=== PATIENT | male | born 1945 | race Caucasian/White ===

== ENCOUNTER 2022-06-01 07:27 | Day surgery (SDC) | payer OTHER ==
--- NOTE | 2022-05-19 10:35 | RAD REPORT ---
EXAM DESCRIPTION: Alon Varghese (2 Views)05/19/2022 10:30 am CLINICAL HISTORY: Preop/hypertension COMPARISON: 2019 FINDINGS: The lungs appear clear of acute infiltrate. The heart is normal size IMPRESSION: No acute abnormalities displayed
[2022-05-19 10:39] LABS: Absolute Lymphocytes (CBC) 0.7 K/uL (0.7-4.9); Hematocrit 38.6 % (39.6-49.0); Lymphocytes % 9.9 % (15.3-44.8); MCV 87.6 fL (80-100); MPV 8.8 fL (7.6-11.3); RBC Red Blood Cell Count 4.41 M/uL (4.33-5.43)
[2022-05-19 10:40] LABS: Protime INR 2.05
[2022-05-19 10:51] LABS: Potassium 4.1 mmol/L (3.5-5.1)
--- NOTE | 2022-05-19 16:23 | EKG ---
Test Date: 2022-05-19 Test Time: 10:11:08 Linoleum Installer: VIANCA MEASUREMENT RESULTS: Intervals: Rate: 85 [place]: QRSD: 94 QT: 346 QTc: 411 [place]: P: [place]: QRS: 22 T: 30 INTERPRETIVE STATEMENTS: Atrial fibrillation Incomplete right bundle branch block Abnormal ECG Compared to ECG 07/30/2013 16:39:24 Incomplete right bundle-branch block now present Sinus rhythm no longer present Left ventricular hypertrophy no longer present Electronically Signed On 05-19-22 16:22:48 WASHATERIA ATTENDANT by Garrison Ackerman
[~2022-06-01 07:27] MED LIST: Meropenem 1,000 MG in NA CHLORIDE 0.9% 100 ML IV SCH
[2022-06-01] MEDS ORDERED: Ringers Lactate 1,000 ML IV ONE (07:55)
[2022-06-01 07:59] LABS: Protime INR 1.1
[2022-06-01] MEDS ORDERED: FENTANYL CITR 100 MCG/2 ML ONE ×2 (09:40→10:04)
[2022-06-01] MEDS ORDERED: LIDOCAINE 1% MPF 5 ML VIAL ONE (09:40)
[2022-06-01] MEDS ORDERED: propofoL 200 MG/20 ML VIAL IV ONE (09:40)
[2022-06-01] MEDS ORDERED: PHENAZOPYRIDINE 100MG TAB PO ONE ×2 (09:57→11:31)
[2022-06-01] MEDS ORDERED: HYDROCODONE/APAP 5/325 MG TAB PO PRN (09:57)
[2022-06-01] MEDS ORDERED: KETOROLAC 30 MG/ML INJ ONE (10:08)
[2022-06-01] MEDS ORDERED: ONDANSETRON 4 MG/2 ML VIAL ONE (10:08)
[2022-06-01] MEDS ORDERED: NS 0.9% VIAL 10 ML ONE (10:12)
[2022-06-01] MEDS ORDERED: Phenylephrine HCl 10 MG/ML 1 ML VIAL ONE (10:12)
[2022-06-01 11:39] LABS: Potassium 5.6 mmol/L (3.5-5.1)
[2022-06-01] MEDS ORDERED: FUROSEMIDE 40 MG/4 ML VIAL ONE (11:48)
[2022-06-01] MEDS ORDERED: NA CHLORIDE 0.9% 1,000 ML ONE (11:48)
[2022-06-01] MEDS ORDERED: NA CHLORIDE 0.9% 1,000 ML IV ONE (11:54)
[2022-06-01] MEDS ORDERED: FUROSEMIDE 40 MG/4 ML VIAL IV ONE (11:54)
[2022-06-01] MEDS ORDERED: HYDROCODONE/APAP 5/325 MG TAB ONE (13:17)
[2022-06-01 14:29] VITALS: TEMP 97.9
[2022-06-01 14:44] LABS: Potassium 5.2 mmol/L (3.5-5.1)
[2022-06-01 15:40] VITALS: BP 122/69; O2SAT 97
[2022-06-01] MEDS ORDERED: Meropenem 1,000 MG in NA CHLORIDE 0.9% 100 ML IV SCH (16:00)
--- NOTE | 2022-06-02 09:51 | OP ---
Surgeon: YANELI HARRIS Preoperative Diagnoses: Benign prostatic hypertrophy with lower urinary tract obstruction and acute urinary retention. Postoperative Diagnoses: 1.Benign prostatic hypertrophy with lower urinary tract obstruction and acute urinary retention. 2.Foreign body in bladder. Principal Procedure: 1.Prostatic urethral lift with 7 implants placed, 3 on the right and 4 on the left. 2.Removal of foreign body from within the bladder. Indication For Procedure: Mr. Knox is a 77-year-old gentleman, who [facility] with acute urinary retention. He underwent urodynamic evaluation following cystoscopy that reveale d weak detrusor contractility. As a result, the degree of obstruction was equivocal. I counseled th e patient on the findings and explained that any procedure to manage his obstruction may potentially be unsuccessful due to the failure of adequate contractility of his bladder. However, the only optio n for trying to remove the catheter would be to undergo a prostatic urethral procedure. After counse ling on the different options to include a bipolar TURP versus the UroLift, he elected to proceed wit h UroLift recognizing the potential for subsequent transurethral resection, if necessary. This would also decrease the risk of incontinence associated with the findings of some detrusor instability not ed on urodynamics. Procedure In Detail: The patient was consented in the preoperative holding area before being transfe rred to the operative suite where general anesthesia was induced. He was given meropenem 1 g IV anti microbial therapy starting 1 to 2 hours prior to the procedure. He had previously been administered gentamicin 400 mg IM every week day since last Tuesday in preparation for surgery today. He was also taking oral Bactrim antimicrobial therapy for urine culture results obtained preoperatively suggesti ve of Pseudomonas and MRSA in his urine. As a result, the catheter was removed once he was placed un michael general anesthesia, and then he was placed in the lithotomy position, padded and secured to the t able appropriately. His genitalia were prepped with Hibiclens mixed with Betadine, and he was draped in standard fashion. The case was begun using a 20-Latvian UroLift sheath with a visual obturator to traverse the urethra and into the bladder with ease. The prostatic urethra was surveyed on the way in, and there was the noted lateral lobar hypertrophy with an elevated median bar without significant intravesical projection. The bladder was decompressed of fluid and urine, and there was noted to be a hair/foreign body within the bladder. After irrigating and removing the hair from within his bladder and ensuring no additional debris pres ent, I then substituted the visual obturator for the first UroLift delivery device and selected the p osition within the left bladder neck region of the prostate approximately 1.5 cm from the bladder nec k. Starting in anterior lateral position in the prostate at about the 10 to 11 o'clock position, the trigger was pulled deploying the needle containing the capsular tab through the prostate. Further c ompression was then achieved seeding the needle to the outer surface of the prostate before the secon d pull of the trigger seeded the capsular tab outside the prostate. The third pull then tensioned th e suture, before I angled the device back toward the midline and advanced 2-3 mm until the monofilame nt was centered in the delivery [place], and then I pulled the trigger the 4th time cutting the suture an d applying the implant tailoring it such that it invaginated within the prostatic urethral tissue genaro ernie on that side approximately 0.5 to 0.75 cm from the bladder neck. I then advanced the UroLift del [place] device back into the bladder before exchanging it for a new UroLift delivery device and placing a similar implant at this time on the right side, 1.5 to 2 cm distal to the bladder neck. Once this was complete, this did achieve a nice opening of the bladder neck, but there was still residual late ral lobar tissue extending to the apex; so, I utilized a 3rd implant at the verumontanum on the left side before placing a 4th implant at the verumontanum on the right side. I then substituted the UroL ift delivery device for visual obturator and surveyed the channel, and there was noted to be some mid gland lateral lobar intrusion obscuring the prostatic urethral lumen while the bladder neck and the apex were nice and open. As a result, I placed a 5th implant in the mid gland region of the prostate on the right side and a 6th implant contralateral in the midline region on the left side. Again, baeza rvey of the channel created did reveal a nice anterior channel, but it was somewhat circuitous ema g off toward the bladder neck to the patient's right. This was because of the residual degree of lat eral lobar tissue that was inferior to the bladder neck implant and also inferior to the mid gland im plant that had previously been placed more anteriorly; so a 7th implant was then placed in that lower component of the tissue invaginating into the anterior channel causing it to be more circuitous. Th is then created a nice and straight continuous anterior channel visible from the verumontanum into th e bladder neck following a total of 7 implants placed. Four implants were placed on the patient's le ft side and three implants were placed on the right side. I then left his bladder full and removed t he scope along with the UroLift device and then replaced into his bladder, a 20-Latvian urethral [place] catheter with ease. 30 cc of sterile water was placed in the balloon, and the catheter was then all owed to decompress. I then irrigated the catheter to ensure absence of any clot material within and the clarity of the urine, and when the urine was essentially clear, I then connected the catheter to a leg bag and took the patient out of the lithotomy position. He was then awakened from general anes thesia, transferred to a stretcher, and then transferred to the recovery room in good condition. Complications: None. Discharge Disposition: He should go home and continue taking the Bactrim antimicrobial provided preo peratively starting after 5 p.m. today. We will provide him with an additional dose of meropenem abdullahi or to discharge about 6 hours after his dose administered this morning. Subsequently, the patient wi ll remove the catheter himself at home tomorrow and conduct a voiding trial. We will then have him c ome by the office in the early afternoon to ensure he is emptying adequately. GHISLAINE/LOUIEL Voice ID: [id number] Report ID: [id number]
== END 2022-06-01 16:50 | disposition home or self-care (01) ==
LOC: OR 07:27
PROVIDERS: ATTEND Urology
PROC: 0T7D8DZ Dilation of Urethra with Intraluminal Device, Via Natural or Artificial Opening Endoscopic (ICD-10-PCS; principal; 2022-06-01 09:30)
DX: N40.1 Benign prostatic hyperplasia with lower urinary tract symptoms (principal); R33.9 Retention of urine, unspecified; T19.1XXA Foreign body in bladder, initial encounter; X58.XXXA Exposure to other specified factors, initial encounter; N39.0 Urinary tract infection, site not specified; B96.5 Pseudomonas (aeruginosa) (mallei) (pseudomallei) as the cause of diseases classified elsewhere; B95.62 Methicillin resistant Staphylococcus aureus infection as the cause of diseases classified elsewhere
CPT/HCPCS: 93005; 87088; 85025; 87086; 80048 ×3; 36415 ×2; 85610 ×2; 87077 ×2; 87186 ×2; 71046; 52441; 52442 ×6; J2704; J2001; J2370; J1940; J3010 ×2; J2185 ×2; A4216; J7120; J7030; J2405

== ENCOUNTER 2023-10-24 08:15 | Day surgery (SDC) | payer OTHER ==
[2023-10-24 08:22] LABS: Absolute Basophils 0.1 K/uL (0-0.5); Absolute Eosinophils 0.2 K/uL (0-0.5); Absolute Lymphocytes (CBC) 0.8 K/uL (0.7-4.9); Absolute Monocytes 0.7 K/uL (0.1-1.3); Absolute Neutrophil 6.6 K/uL (1.8-8.0); Basophils % 0.8 % (0-1.3); Eosinophils % 2.8 % (0-4.4); Hematocrit 40.2 % (39.6-49.0); Hemoglobin 13.3 g/dL (13.6-17.9); Lymphocytes % 9.3 % (15.3-44.8); MCH 29.3 pg (27.0-35.0); MCHC 33.1 g/dL (32.0-36.0); MCV 88.7 fL (80-100); MPV 8.8 fL (7.6-11.3); Monocytes % 8.4 % (3.3-12.3); Neutrophils % 78.7 % (41.7-73.7); Platelets 274 thou/uL (152-406); RBC Red Blood Cell Count 4.54 M/uL (4.33-5.43); Red Cell Distribution Width 13.9 % (12.1-15.2)
[2023-10-24 08:25] LABS: PT Prothrombin Time 13.7 SECONDS (9.5-12.5); PTT, Activated Partial Thromb 45.5 SECONDS (24.3-36.9); Protime INR 1.25
[2023-10-24] MEDS: Ringers Lactate 1,000 ML IV ONE (08:45)
[2023-10-24 08:51] LABS: Anion Gap 5.6 mEq/L (5.0-15.0); Potassium 4.6 mEq/L (3.5-5.1)
[2023-10-24] MEDS: CEFAZOLIN SODIUM 1 GM/VIAL ONE (10:16)
[2023-10-24] MEDS ORDERED: propofoL 200 MG/20 ML VIAL IV ONE (10:47)
[2023-10-24] MEDS ORDERED: FENTANYL CITR 100 MCG/2 ML ONE (10:47)
[2023-10-24] MEDS ORDERED: LIDOCAINE 1% MPF 5 ML VIAL ONE (10:47)
[2023-10-24] MEDS ORDERED: ONDANSETRON 4 MG/2 ML VIAL ONE (11:16)
[2023-10-24] MEDS ORDERED: dexAMETHasone 4 MG/ML VIAL ONE (11:16)
--- NOTE | 2023-10-24 11:39 | P.BOP ---
Preoperative diagnosis: right posterior infected subQ mass with abscess Primary procedure: Excisional biopsy right posterior infected subQ mass [id number] Secondary procedure: with abscess drainage Estimated blood loss: <10cc Specimen: mass, culture Findings: mass with abscess Anesthesia: General Complications: None Drain(s): Other (iodoform) Transferred to: Recovery Room Condition: Good
[2023-10-24] MEDS: CODEINE 30MG/APAP 300MG TAB ONE (12:49)
[2023-10-24 13:07] VITALS: BP 127/80; TEMP 98; O2SAT 96
--- NOTE | 2023-10-24 14:37 | EKG ---
Test Date: 2023-10-24 Test Time: 08:05:09 Assistant Track Coach: AKOSUA MEASUREMENT RESULTS: Intervals: Rate: 81 [place]: QRSD: 104 QT: 368 QTc: 427 [place]: P: [place]: QRS: 52 T: 53 INTERPRETIVE STATEMENTS: Atrial fibrillation Incomplete right bundle branch block Abnormal ECG Compared to ECG 05/19/2022 10:11:08 No significant changes Electronically Signed On 10-24-23 14:36:02 CDT by Lennox Ramirze
--- NOTE | 2023-10-31 22:47 | DS ---
Date of Discharge: 10/24/2023 Diagnosis: Right posterior infected subcutaneous mass with abscess. Procedure: Excisional biopsy of right posterior subcutaneous infected mass 7 x 7 x 3 cm. Condition: Stable. Disposition: Home. Activity: As tolerated. No heavy lifting. Followup: Follow up in my office in 1 week. Call for appointment at [phone]. He also has the opti ons to [facility] in the next 48 hours if possible. The family was explai shaun. LYNDA/LIVIA Voice ID: [id number] Report ID: [id number]
--- NOTE | 2023-10-31 23:05 | OP ---
Date of Procedure: 10/24/2023 Surgeon: Jann Mccormack MD Preoperative Diagnosis: Right posterior infected subcutaneous mass with abscess. Postoperative Diagnosis: Right posterior infected subcutaneous mass with abscess. Procedure: Excisional biopsy of right posterior infected subcutaneous mass 7 x 7 x 3 cm with abscess drainage. Estimated Blood Loss: Less than 10 mL. Specimen: Mass and culture. Finding: Mass with abscess. Anesthesia: General plus local. Packing: Iodoform. Indications: This is a case of a male, who comes to us with infected back mass draining purulent dis charge, cellulitis present, fluctuance, tenderness consistent with an ulcer, underlying abscess. The benefits, alternatives, and risks of excisional biopsy of infected mass and also drainage of an absc ess fully explained to him, which include, but not limited to infection, bleeding, damage to adjacent structures, anesthesia complication, recurrence, DE, and . He also understands this may not re lieve any symptoms. He might need more than one surgical intervention. He understood and signed a c onsent. He also understands he will be doing dressing changes and he has to be compliant with that a nd the antibiotics given. Procedure In Detail: The area of concern was marked by me and the patient in the holding room. The patient was brought to the operating room, placed in supine position. Anesthesia was done without co mplication. The patient was placed in lateral decubitus position with proper protection. The neck a jarrett was prepped and draped in a sterile fashion already. A local anesthesia was applied followed by sharp incision on the skin including some of the skin with it. That was done all the way down to sub cutaneous tissue. The mass was excised. We noticed an abscess with pus underneath and that was cult ured. Hemostasis was obtained. This goes all the way down to muscle, does not penetrate the muscle. We obtained hemostasis with local anesthetic and they packed the area with iodoform. There were mu ltiple loculations that were explored open on each side of the area. The patient tolerated the proce dure well. The area was covered with sterile dressings. The patient was sent to Recovery in stable condition. LYNDA/LIVIA Voice ID: [id number] Report ID: [id number]
== END 2023-10-24 13:15 | disposition home or self-care (01) ==
LOC: OR 08:15
PROVIDERS: ATTEND Surgery
PROC: 0JB40ZZ Excision of Right Neck Subcutaneous Tissue and Fascia, Open Approach (ICD-10-PCS; principal; 2023-10-24 12:15)
DX: L02.11 Cutaneous abscess of neck (principal); L03.221 Cellulitis of neck; L08.9 Local infection of the skin and subcutaneous tissue, unspecified; I48.91 Unspecified atrial fibrillation; I51.9 Heart disease, unspecified; I10 Essential (primary) hypertension; J44.9 Chronic obstructive pulmonary disease, unspecified
CPT/HCPCS: 11426; 93005; 87070; 85025; 80048; 36415; 87205; 85610; 88305; 85730; 87075; 87077; 87186; J2704; J1100; J2001; J3010; J2405; J7120; J0690

== ENCOUNTER 2024-08-17 12:47 | Emergency (ER) | payer OTHER ==
--- NOTE | 2024-08-17 14:50 | RAD REPORT ---
EXAM: Lower Extremity Arterial Bilat HISTORY: PAIN COMPARISON: None TECHNIQUE: Multiplanar grayscale and color Doppler images were obtained and a bilateral lower extrem ity arterial ultrasound. Spectral analysis of the Doppler waveforms were performed. FINDINGS: No significant calcified plaque is seen in either lower extremity. Right lower extremity: Common femoral artery: Triphasic Superficial femoral artery: Triphasic Popliteal artery: Triphasic Posterior tibial artery: Triphasic Dorsalis pedis artery: Triphasic Left lower extremity: Common femoral artery: Triphasic Superficial femoral artery: Triphasic Popliteal artery: Triphasic Posterior tibial artery: Triphasic Dorsalis pedis artery: Triphasic IMPRESSION: No significant arterial abnormality of the extremities.
[2024-08-17] MEDS ORDERED: ACETAMINOPHEN 325 MG TABLET ONE (15:03)
[2024-08-17] MEDS ORDERED: GABAPENTIN 300 MG CAP ONE (15:03)
[2024-08-17] MEDS ORDERED: TRAMADOL HCL 50 MG TAB ONE (15:03)
--- NOTE | 2024-08-17 15:38 | RAD REPORT ---
EXAMINATION: US LOWER EXTREMITY VENOUS DOPPLER BILATERAL CLINICAL INDICATION: Male, 79 years old.PAIN TECHNIQUE: Complete bilateral duplex sonography of the lower extremity veins was performed. The exami nation included compression for vein patency, color Doppler imaging and flow augmentation in response to distal compression of the distal external iliac, common femoral, femoral, popliteal, costa ravin, tibial and great saphenous veins. [id number]. COMPARISON: No prior exams FINDINGS: Duplex sonography imaging demonstrates all deep examined to be fully compressible with spontaneous, p hasic and augmented flow bilaterally. IMPRESSION: No evidence of deep venous thrombosis seen in either lower extremity.
--- NOTE | 2024-08-17 15:45 | ER ---
Nurse's Notes [facility] Name: Kwaku Knox Age: 79 yrs Sex: Male : 1945 Arrival Date: 08/17/2024 Time: 12:47 Bed 12 Private MD: Diagnosis: Sciatica, right side;Pain in left leg Presentation: 08/17 13:11 Chief complaint: Patient states: bilateral leg pain onset 1.5 weeks ago. Pt states that cm10 he only has the pain when standing. Pt saw PCP and had labs and X-rays done and is awaiting for MRI approval. Coronavirus screen: Client denies travel out of the [place] in the last 14 days. Ebola Screen: Patient denies travel to an Ebola-affected area in the 21 days before illness onset. Initial Sepsis Screen: Does the patient meet any 2 criteria? No. Patient's initial sepsis screen is negative. Does the patient have a suspected source of infection? No. Patient's initial sepsis screen is negative. Risk Assessment: Do you want to hurt yourself or someone else? Patient reports no desire to harm self or others. Onset of symptoms was August 17, 2024. 13:11 Method Of Arrival: Wheelchair cm10 13:11 Acuity: ROMI 3 cm10 Triage Assessment: 13:14 General: Appears in no apparent distress. comfortable, Behavior is calm, cooperative. cm10 Pain: Complains of pain in right calf and left calf Pain does not radiate. Pain currently is 0 out of 10 on a pain scale. at worst was 10 out of 10 on a pain scale. Quality of pain is described as aching, Aggravated by weight bearing. Neuro: No deficits noted. Level of Consciousness is awake, alert, obeys commands, Oriented to person, place, time, situation, Appropriate for age. Respiratory: No deficits noted. Airway is patent Respiratory effort is even, unlabored, Respiratory pattern is regular, symmetrical. Historical: - Allergies: 13:13 No Known Allergies; cm10 - Home Meds: 13:13 Wegovy subcutaneous [Active]; cm10 - PMHx: 13:13 Hypertension; Atrial fibrillation; cm10 - PSHx: 13:13 knee replacement - left; cm10 - Immunization history:: Adult Immunizations up to date. - Infectious Disease History:: Denies. - Social history:: Smoking status: Patient denies any tobacco usage or history of. Screenin:33 [facility] ED Fall Risk Assessment (Adult) History of falling in the last 3 months, me1 including since admission No falls in past 3 months (0 pts) Confusion or Disorientation No (0 pts) Intoxicated or Sedated No (0 pts) Impaired Gait Yes (1 pt) Mobility Assist Device Used Yes (1 pt) Altered Elimination No (0 pt) Score/Fall Risk Level 0 - 2 = Low Risk Maintained a safe environment, Provided non-skid footwear, Hourly rounding (assess needs \T\ fall precautionary measures) done. Abuse screen: Denies threats or abuse. Nutritional screening: No deficits noted. Tuberculosis screening: No symptoms or risk factors identified. Assessment: 15:33 General: Appears uncomfortable, well groomed, well developed, well nourished, Behavior me1 is calm, cooperative, appropriate for age, Reports bilateral leg pain onset 1.5 weeks ago. Pt states that he only has the pain when standing. Pt saw PCP and had labs and X-rays done and is awaiting for MRI approval. Pain: Complains of pain in left leg and right leg and right calf and left calf Pain does not radiate. Pain currently is 4 out of 10 on a pain scale. at worst was 8 out of 10 on a pain scale. Quality of pain is described as aching, Pain began 1.5 weeks ago Is continuous, Alleviated by rest, Aggravated by bearing weight/standing. Neuro: Level of Consciousness is awake, alert, obeys commands, Oriented to person, place, time, situation, Appropriate for age. Cardiovascular: Patient's skin is warm and dry. Respiratory: Airway is patent Respiratory effort is even, unlabored, Respiratory pattern is regular, symmetrical. GI: No signs and/or symptoms were reported involving the gastrointestinal system. : No signs and/or symptoms were reported regarding the genitourinary system. EENT: No signs and/or symptoms were reported regarding the EENT system. Derm: Skin is intact, is healthy with good turgor, Skin is pink, warm \T\ dry. Musculoskeletal: Reports pain in left leg and right leg and right calf and left calf. Vital Signs: 13:11 BP 147 / 87; Pulse 63; Resp 18; Temp 97.1(TE); Pulse Ox 100% on R/A; Weight 126.1 kg; cm10 Height 5 ft. 10 in. ; Pain 10/10; 15:46 BP 146 / 75; Pulse 67; Resp 17; Temp 98.6; Pulse Ox 99% ; me1 15:48 Pain 2/10; me1 13:11 Body Mass Index 39.89 (126.10 kg, 177.8 cm) cm10 13:11 Pain Scale: Adult cm10 15:48 Pain Scale: Adult me1 ED Course: 12:49 Patient arrived in ED. al6 13:05 Agustin Leo PA is PHCP. cp 13:05 Agustin Durham MD is Attending Physician. cp 13:13 Triage completed. cm10 13:15 Arm band placed on left wrist. Patient placed in an exam room, on a stretcher. cm10 14:41 Extremity Venous W Compression Bilateral US In Process Unspecified. EDMS 14:42 Lower Extremity Arterial Bilat US In Process Unspecified. EDMS 14:53 Karen Davis, RN is Primary Nurse. me1 15:33 Patient has correct armband on for positive identification. Bed in low position. Call me1 light in reach. Side rails up X 1. Provided Education on: POC. Verbalized understanding.. 15:33 No provider procedures requiring assistance completed. Patient did not have IV access me1 during this emergency room visit. Administered Medications: 15:05 Drug: Neurontin PO 300 mg PO once Route: PO; me1 15:47 Follow up: Response: No adverse reaction; Pain is decreased me1 15:05 Drug: Acetaminophen PO 650 mg PO once Route: PO; me1 15:48 Follow up: Response: No adverse reaction; Pain is decreased me1 15:05 Drug: traMADol PO 50 mg PO once Route: PO; me1 15:48 Follow up: Pain 2/10 Adult; Response: No adverse reaction; Pain is decreased me1 Medication: 15:33 VIS not applicable for this client. me1 Outcome: 15:45 Discharge ordered by . cp 15:52 Discharged to home via wheelchair, with family, me1 15:52 Condition: stable 15:52 Discharge instructions given to patient, family, Instructed on discharge instructions, follow up and referral plans. medication usage, Demonstrated understanding of instructions, follow-up care, medications, Prescriptions given X 2, 15:53 Patient left the ED. me1 Signatures: Dispatcher [employer] EDMS Agustin Leo PA PA cp Martinez, Clarissa, RN RN cm10 Karen Davis RN RN me1 Anastasia Dial6 Corrections: (The following items were deleted from the chart) 15:33 13:11 Chief complaint: Patient states: bilateral leg pain onset 1.5 weeks ago. Pt me1 states that he only has the pain when standing. Pt saw PCP and had labs and X-rays done and is awaiting for MRI approval. cm10
--- NOTE | 2024-08-17 15:45 | EDPHYS ---
Physician Documentation [facility] Name: Kwaku Knox Age: 79 yrs Sex: Male : 1945 Arrival Date: 08/17/2024 Time: 12:47 Bed 12 Private MD: ED Physician Agustin Durham HPI: 08/17 13:55 This 79 yrs old Male presents to ER via Wheelchair with complaints of Leg Pain. cp 13:55 The patient presents with pain, that is acute. The complaints affect the right leg and cp left leg. Onset: The symptoms/episode began/occurred 1.5 week(s) ago. 13:55 Modifying factors: the symptoms are aggravated by standing and walking. cp 13:55 Associated signs and symptoms: Pertinent positives: calf tenderness, radiating pain cp from right buttock to right calf, Pertinent negatives fever, numbness, swelling, warmth. 13:55 Treatment prior to arrival includes: no previous treatment. Severity of symptoms: in cp the emergency department the symptoms wax and wane. Historical: - Allergies: 13:13 No Known Allergies; cm10 - Home Meds: 13:13 Wegovy subcutaneous [Active]; cm10 - PMHx: 13:13 Hypertension; Atrial fibrillation; cm10 - PSHx: 13:13 knee replacement - left; cm10 - Immunization history:: Adult Immunizations up to date. - Infectious Disease History:: Denies. - Social history:: Smoking status: Patient denies any tobacco usage or history of. ROS: 14:00 Constitutional: Negative for body aches, chills, fever, poor PO intake, cp 14:00 Back: Positive for radiating pain from right buttock, cp 14:00 MS/extremity: Positive for pain, of the right leg and left leg, 14:00 Eyes: Negative for injury, pain, redness, and discharge, cp 14:00 Cardiovascular: Negative for chest pain, edema, palpitations, 14:00 Respiratory: Negative for cough, shortness of breath, wheezing, 14:00 Abdomen/GI: Negative for abdominal pain, nausea, vomiting, and diarrhea, 14:00 All other systems are negative, cp Exam: 14:05 Constitutional: The patient appears in no acute distress, alert, awake, cp non-diaphoretic, non-toxic, well developed, well nourished, obese, 14:05 Head/Face: Normocephalic, atraumatic. cp 14:05 Chest/axilla: Inspection: normal, 14:05 Cardiovascular: Rate: normal, 14:05 Respiratory: the patient does not display signs of respiratory distress, Respirations: normal, no use of accessory muscles, no retractions, labored breathing, is not present, Breath sounds: are clear throughout, no decreased breath sounds, no stridor, no wheezing, 14:05 Abdomen/GI: Inspection: abdomen appears normal, Palpation: abdomen is soft and non-tender, in all quadrants, 14:05 Back: vertebral tenderness, is not appreciated, 14:05 Musculoskeletal/extremity: Extremities: grossly normal except: noted in the right calf and left calf: pain, tenderness, There is no evidence of erythema, swelling, Pulses: palpable, strong bilateral dorsalis pedis, skin warm, dry with no erythema of lower extremities. 14:05 Neuro: Orientation: to person, place \T\ time. Mentation: is normal, Vital Signs: 13:11 BP 147 / 87; Pulse 63; Resp 18; Temp 97.1(TE); Pulse Ox 100% on R/A; Weight 126.1 kg; cm10 Height 5 ft. 10 in. ; Pain 10/10; 15:46 BP 146 / 75; Pulse 67; Resp 17; Temp 98.6; Pulse Ox 99% ; me1 15:48 Pain 2/10; me1 13:11 Body Mass Index 39.89 (126.10 kg, 177.8 cm) cm10 13:11 Pain Scale: Adult cm10 15:48 Pain Scale: Adult me1 MDM: 13:16 Medical Screening Exam initiated rory 14:00 Differential diagnosis: dvt, cellulitis, electrolyte abnormality, cramping. 15:45 Data reviewed: vital signs, nurses notes, radiologic studies, ultrasound, and as a cp result, I will discharge patient. 15:45 I considered the following discharge prescriptions or medication management in the emergency department Medications were administered in the Emergency Department. See MAR. 15:45 Care significantly affected by the following chronic conditions: Hypertension. Counseling: I had a detailed discussion with the patient and/or guardian regarding the historical points, exam findings, and any diagnostic results supporting the discharge/admit diagnosis, radiology results, to return to the emergency department if symptoms worsen or persist or if there are any questions or concerns that arise at home. Response to treatment: the patient's symptoms have mildly improved after treatment, and as a result, I will discharge patient. 08/17 13:55 Order name: Extremity Venous W Compression Bilateral US; Complete Time: 15:40 cp 08/17 15:40 Interpretation: Report reviewed. cp 08/17 13:55 Order name: Lower Extremity Arterial Bilat US; Complete Time: 15:40 cp 08/17 15:40 Interpretation: Report reviewed. cp Administered Medications: 15:05 Drug: Neurontin PO 300 mg PO once Route: PO; me1 15:47 Follow up: Response: No adverse reaction; Pain is decreased me1 15:05 Drug: Acetaminophen PO 650 mg PO once Route: PO; me1 15:48 Follow up: Response: No adverse reaction; Pain is decreased me1 15:05 Drug: traMADol PO 50 mg PO once Route: PO; me1 15:48 Follow up: Pain 2/10 Adult; Response: No adverse reaction; Pain is decreased me1 Disposition Summary: 08/17/24 15:45 Discharge Ordered Notes: Location: Home cp Problem: new cp Symptoms: have improved cp Condition: Stable cp Diagnosis - Sciatica, right side cp - Pain in left leg cp Followup: cp - With: Private Physician - When: 1 week - Reason: Recheck today's complaints Discharge Instructions: - Discharge Summary Sheet cp - Musculoskeletal Pain cp - Sciatica cp - Back Exercises cp Forms: - Medication Reconciliation Form cp - Antibiotic Education cp - Prescription Opioid Use cp - Patient Portal Instructions cp - Leadership Thank You Letter cp Prescriptions: - Celebrex 200 mg Oral Capsule - take 1 capsule ORAL route once daily As needed take with food; 20 capsule; cp Refills: 0, Product Selection Permitted - Neurontin 300 mg Oral capsule - take 1 capsule ORAL route At bedtime; 30 capsule; Refills: 0, Product Selection cp Permitted Addendum: 08/19/2024 10:44 Co-signature as Attending Physician, Agustin Durham MD I agree with the assessment and c rondon plan of care. Signatures: Dispatcher [employer] Agustin Dickson MD MD cha Page, Corey, PA PA cp Maday Mccormack RN RN cm10 Karen Davis RN RN me1 Corrections: (The following items were deleted from the chart) 08/17 13:55 13:55 Extrem Venous W Compression Ken+[email or web address].RAD.BRZ ordered. EDMS EDMS 13:55 13:55 Lower Extremity Arterial Bilat+US.RAD.BRZ ordered. EDMS EDMS
[2024-08-17 16:09] VITALS: BP 146/75; TEMP 98.6; O2SAT 99
== END 2024-08-17 15:53 | disposition home or self-care (01) ==
LOC: ER 12:47
DX: M54.31 Sciatica, right side (principal); M79.605 Pain in left leg; I10 Essential (primary) hypertension; I48.91 Unspecified atrial fibrillation
CPT/HCPCS: 93925; 93970; 99283

== ENCOUNTER 2025-02-06 04:09 | Emergency (ER) | payer OTHER ==
[2025-02-06] MEDS ORDERED: ONDANSETRON 4 MG/2 ML VIAL ONE (04:50)
[2025-02-06] MEDS ORDERED: MORPHINE 4 MG/ML SYR ONE ×2 (04:50→07:45)
[2025-02-06] MEDS ORDERED: FAMOTIDINE 20 MG/2 ML VIAL IV ONE (04:51)
[2025-02-06] MEDS ORDERED: NA CHLORIDE 0.9% 1,000 ML ONE (04:51)
[2025-02-06 05:01] LABS: Absolute Lymphocytes (CBC) 0.9 K/uL (0.7-4.9); Hematocrit 39.8 % (39.6-49.0); Hemoglobin 13.7 g/dL (13.6-17.9); MCH 31.9 pg (27.0-35.0); MCHC 34.4 g/dL (32.0-36.0); MCV 92.6 fL (80-100); MPV 9.8 fL (7.6-11.3); Nucleated RBC Absolute Count 0.0 (0-0); Nucleated Red Blood Cells % 0.0 % (0-0); RBC Red Blood Cell Count 4.29 M/uL (4.33-5.43); White Blood Count 13.00 thou/uL (4.3-10.9)
[2025-02-06 05:08] LABS: Sqamous Epithelial None Seen /HPF (None Seen); Urine Micro Reflex YN NO BILL MICROSCOPIC
[2025-02-06 05:19] LABS: ALT/SGPT 29.0 U/L (16-61); AST/SGOT 18.0 U/L (15-37); Anion Gap 9.2 mEq/L (5.0-15.0); BUN Blood Urea Nitrogen 31.0 mg/dL (7-18); Glucose Level 146.0 mg/dL (74-106); Potassium 4.2 mEq/L (3.5-5.1)
[2025-02-06 05:20] LABS: Albumin 3.2 g/dL (3.4-5.0); Albumin/Globulin Ratio 1.1 (1.1-1.8); Alkaline Phosphatase 72.0 U/L (45-117); Globulin 2.9 g/dL (2.3-3.5); Lipase 31.0 U/L (13-75); NT PRO-BNP 752.0 pg/mL (<450); Troponin High Sensitivity 13.2 pg/mL (<58.9)
[2025-02-06 05:34] LABS: Differential Total Cells Count 100; Segmented Neutrophils 67 % (40-80)
[2025-02-06 05:35] LABS: Blood Morphology Comment NOT SEEN (NOT SEEN)
--- NOTE | 2025-02-06 06:27 | RAD REPORT ---
EXAMINATION: CT ABDOMEN PELVIS WITHOUT IV CONTRAST INDICATION: 79 years old Male 1945 ABD PAIN COMPARISON(S): September 13, 2015 images only. TECHNIQUE: CT abdomen and pelvis. One or more of the following dose-optimizing techniques was utilize d for this exam: automated exposure control, adjustment of the mA and/or kV according to patient size, and/or use of iterative reconstruction technique. Contrast: As stated in examination. FINDINGS: SUPPORT DEVICES: None. LOWER CHEST: Cardiomegaly. ABDOMEN/PELVIS: Liver: No acute finding. Gallbladder: Normal gallbladder. Biliary: No biliary ductal dilation. Pancreas: No pancreatitis. Spleen: Normal. Adrenal glands: No acute finding. Kidneys and ureters: No acute finding. Bladder: Decompressed with Wayne balloon catheter. Reproductive organs: Prostate seeds are noted. The prostate is markedly enlarged. Stomach/bowel: Large stool bolus is seen in the rectum compatible with impaction. Appendix: No appendicitis. Lymph nodes: No lymphadenopathy. Peritoneum: No intraperitoneal free air or significant fluid. Vessels: Calcific atherosclerotic disease aorta and iliofemoral systems. MUSCULOSKELETAL: Abdominal wall: No hernia or soft tissue mass. Bones: Degenerative disc disease and multilevel degenerative changes to the facet joints SI joints an d hips. Small bone island left symphysis pubis. Multiple Schmorl's nodes noted. IMPRESSION: No acute findings. Multiple chronic age-related findings as described. Prostate seeds noted. Wayne balloon urinary yumiko ter noted. Electronically signed by: Boni Serrato MD 02/06/2025 06:14 AM CDT Due to temporary technical issues with the PACS/[facility] reporting system, reports are being no d by the in-house radiologist without review as a courtesy to ensure prompt reporting the interpreting radiologist is fully responsible for the content of the report. Transcribed Date/Time: 02/06/2025 6:26 AM
[2025-02-06] MEDS ORDERED: FLEET ENEMA ADULT PR ONE (06:53)
[2025-02-06] MEDS ORDERED: BISACODYL 10 MG RECTAL SUPP ONE (07:43)
[2025-02-06] MEDS ORDERED: CEFTRIAXONE 1000 MG/VIAL ONE (07:43)
[2025-02-06] MEDS ORDERED: NA CHLORIDE 0.9% 50 ML ONE (07:44)
[2025-02-06] MEDS ORDERED: LACTULOSE 20 GM/30 ML UCUP ONE (07:44)
--- NOTE | 2025-02-06 08:21 | RAD REPORT ---
EXAMINATION: US LOWER EXTREMITY VENOUS DOPPLER BILATERAL CLINICAL INDICATION: Male, 79 years old.PAIN TECHNIQUE: Complete bilateral duplex sonography of the lower extremity veins was performed. The exami nation included compression for vein patency, color Doppler imaging and flow augmentation in response to distal compression of the distal external iliac, common femoral, femoral, popliteal, costa ravin, tibial and great saphenous veins. [id number]. COMPARISON: No prior exams FINDINGS: Duplex sonography imaging demonstrates all deep examined to be fully compressible with spontaneous, p hasic and augmented flow bilaterally. IMPRESSION: No evidence of deep venous thrombosis seen in either lower extremity.
--- NOTE | 2025-02-06 09:09 | ER ---
Nurse's Notes [facility] Name: Kwaku Knox Age: 79 yrs Sex: Male : 1945 Arrival Date: 02/06/2025 Time: 04:09 Bed 18 Private MD: Diagnosis: Constipation;Dysuria;Hematuria, unspecified;Bandemia Presentation: 02/06 04:30 Chief complaint: Patient states: PT STATES HE HAS ABDOMINAL PAIN AND UNABLE TO URINATE, br2 AND LAST BM 3-4 DAYS AGO. PT ARRIVES PALE AND DIAPHORETIC. Coronavirus screen: Client denies travel out of the [place] in the last 14 days. Ebola Screen: Patient denies exposure to infectious person. Initial Sepsis Screen: Does the patient meet any 2 criteria? No. Patient's initial sepsis screen is negative. Does the patient have a suspected source of infection? No. Patient's initial sepsis screen is negative. Risk Assessment: Do you want to hurt yourself or someone else? Patient reports no desire to harm self or others. Onset of symptoms is unknown. 04:30 Method Of Arrival: Wheelchair br2 04:30 Acuity: ROMI 3 br2 Triage Assessment: 04:34 General: Appears uncomfortable, obese, Behavior is anxious. Pain: Complains of pain in br2 suprapubic area, right lower quadrant and left lower quadrant. GI: Reports lower abdominal pain, upper abdominal pain, constipation. : Reports inability to void, since YESTERDAY AT 1900. Historical: - Allergies: 04:34 No Known Allergies; br2 - PMHx: 04:34 Atrial fibrillation; Hypertension; br2 - PSHx: 04:34 knee replacement - left; br2 - Immunization history:: Adult Immunizations up to date. - Infectious Disease History:: Denies. - Social history:: Smoking status: . - Family history:: not pertinent. Screenin:40 [facility] ED Fall Risk Assessment (Adult) History of falling in the last 3 months, tb4 including since admission No falls in past 3 months (0 pts) Confusion or Disorientation No (0 pts) Intoxicated or Sedated No (0 pts) Impaired Gait Yes (1 pt) Mobility Assist Device Used Yes (1 pt) Altered Elimination Yes (1 pt) Score/Fall Risk Level 3 or more points = High Risk Oriented to surroundings, Maintained a safe environment. Abuse screen: Denies threats or abuse. Denies injuries from another. Nutritional screening: No deficits noted. Tuberculosis screening: No symptoms or risk factors identified. Assessment: 04:40 General: Appears distressed, uncomfortable, ill, Behavior is cooperative, restless. tb4 Pain: Complains of pain in suprapubic area, right lower quadrant and left lower quadrant Pain does not radiate. Pain currently is 10 out of 10 on a pain scale. Quality of pain is described as crampy, pressure, sharp, Pain began gradually, Is continuous, Alleviated by nothing. Neuro: Level of Consciousness is awake, alert, obeys commands, Oriented to person, place, time, situation, Polystyrene Molding Machine Tender are weak bilaterally Moves all extremities. Full function Weakness in bilateral hand(s) arm(s) leg(s) foot/feet Generalized weakness x6 hours, patient normally use a walker. Gait is unsteady, Patient use a walker. Speech is normal, Facial symmetry appears normal, Reports weakness generalized. Respiratory: Airway is patent Trachea midline Respiratory effort is even, unlabored, Respiratory pattern is regular, symmetrical. GI: Bowel sounds present X 4 quads. Abd is soft Abdomen is tender to palpation in right lower quadrant and left lower quadrant Reports constipation, cramping, Pain is 10 out of 10 on a pain scale. since 2100 on 02/05/25 last bowel movement 02/02/25. : Reports cramping, lower quadrant(s) inability to void, since 1900 on 02/05/2025 pain in suprapubic area. Derm: Skin is intact, is healthy with good turgor, Skin is pale, Skin temperature is warm. 07:22 Reassessment: Patient appears in no apparent distress at this time. Patient and/or db family updated on plan of care and expected duration. Pain level reassessed. Patient is alert, oriented x 3, equal unlabored respirations, skin warm/dry/pink. PENDING BOWEL MOVEMENT. ENEMA GIVEN BY PREVIOUS SHIFT RN. 09:30 Reassessment: Patient appears in no apparent distress at this time. Patient and/or db family updated on plan of care and expected duration. Pain level reassessed. Patient is alert, oriented x 3, equal unlabored respirations, skin warm/dry/pink. Vital Signs: 04:30 BP 145 / 80; Pulse 112; Resp 22; Pulse Ox 96% ; Weight 117.93 kg; Height 5 ft. 7 in. ; br2 Pain 10/10; 04:47 BP 145 / 80; Pulse 68; Resp 18; Temp 97.4(O); Pulse Ox 97% ; Weight 124.74 kg; Height 5 tb4 ft. 10 in. ; Pain 10/10; 05:18 BP 129 / 90; Pulse 86; Resp 18; Pulse Ox 97% on R/A; Pain 7/10; tb4 08:20 BP 136 / 68; Pulse 97; Resp 18; Pulse Ox 96% ; db 08:30 BP 125 / 95; Pulse 95; Resp 19; Pulse Ox 96% ; db 09:30 BP 124 / 58; Pulse 90; Resp 18; Pulse Ox 95% ; db 04:47 Body Mass Index 39.46 (124.74 kg, 177.8 cm) tb4 04:30 Pain Scale: Adult br2 04:47 Pain Scale: Adult tb4 05:18 Pain Scale: Adult tb4 Nilsa Coma Score: 06:43 Eye Response: spontaneous(4). Motor Response: obeys commands(6). Verbal Response: sp4 oriented(5). Total: 15. ED Course: 04:16 Patient arrived in ED. gm2 04:31 Inserted saline lock: 20 gauge in right antecubital area, using aseptic technique. tb4 Blood collected. Flushed with 10 mL NS. 04:32 Initial lab(s) drawn. Wayne cath inserted, using sterile technique, 18 Fr., by ED tb4 staff, balloon inflated, to gravity drainage, urine specimen collected. other 550 after Wayne insert. 04:34 Triage completed. br2 04:34 Arm band placed on right wrist. br2 04:37 Peterson Kramer MD is Attending Physician. sp4 04:40 No provider procedures requiring assistance completed. Urine collected: Wayne catheter tb4 specimen, marjan colored, EKG done, by ED staff, CT Scan. 04:40 Patient has correct armband on for positive identification. Bed in low position. Call tb4 light in reach. Side rails up X 1. Side rails up X2. Adult w/ patient. Client placed on continuous cardiac and pulse oximetry monitoring. NIBP monitoring applied. media monitor on. Door closed. Lights dimmed. Warm blanket given. 04:48 Ptt, Activated Sent. tb4 04:48 BNP Sent. tb4 04:48 Troponin High Sensitivity Sent. tb4 05:14 CT Abd/Pelvis - Without Contrast In Process Unspecified. EDMS 07:02 Wayne cath removed intact, balloon deflated. tb4 07:22 Christy Pederson, RN is Primary Nurse. db 07:28 Attending Physician role handed off by Peterson Kramer MD rory 07:28 Agustin Durham MD is Attending Physician. rory 07:54 Patient taken to ultrasound. via stretcher. db 08:13 Patient moved back from ultrasound. db 08:17 US Extremity Venous W Compression Ken In Process Unspecified. EDMS 09:08 Clarissa Lynne MD is Referral Physician. rory 09:55 IV discontinued, intact, bleeding controlled, No redness/swelling at site. db 09:55 Provided Education on: discharge and followup. db Administered Medications: 05:00 Drug: Famotidine IVP 20 mg IVP once; dilute with 10 mL 0.9% NaCl; give over 2 minutes tb4 Route: IVP; Site: right antecubital; 05:19 Follow up: Response: No adverse reaction tb4 05:01 Drug: Ondansetron IVP 8 mg IVP once; over 2 minutes Route: IVP; Site: right antecubital;tb4 05:19 Follow up: Response: No adverse reaction tb4 05:01 Drug: morphine IVP or IV 4 mg IVP once over 4 mins Route: IVP; Infused Over: 4 mins; tb4 Site: right antecubital; 05:19 Follow up: Response: No adverse reaction; Pain is decreased; RASS: Alert and Calm (0) tb4 05:01 Drug: NS 0.9% IV 1000 ml IV at 1 bolus Per protocol; to be given as a bolus over 60 tb4 minutes Route: IV; Rate: 1 bolus; Site: right antecubital; 08:00 Follow up: Response: No adverse reaction; IV Status: Completed infusion; IV Intake: db 1000ml 07:01 Drug: Fleet Enema PA 133 ml PA once Route: PA; tb4 10:11 Follow up: Response: No adverse reaction db 08:20 Drug: Rocephin IV 1 grams IV at per protocol once; Given slow IV push per pharmacy db instructions Route: IV; Rate: per protocol; Site: right antecubital; 09:45 Follow up: Response: No adverse reaction; IV Status: Completed infusion; IV Intake: 50mldb 08:20 Drug: morphine IVP or IV 2 mg IVP once over 4 mins Route: IVP; Infused Over: 4 mins; db Site: right antecubital; 10:11 Follow up: Response: No adverse reaction db 08:30 Drug: Dulcolax PA Suppository 10 mg PA once Route: PA; db 10:11 Follow up: Response: No adverse reaction db 08:30 Drug: Lactulose PO 60 grams 45 ml PO once Volume: 45 ml; Route: PO; db 10:12 Follow up: Response: No adverse reaction db 08:30 Drug: morphine IVP or IV 2 mg IVP once over 4 mins Route: IVP; Infused Over: 4 mins; db Site: right antecubital; 10:11 Follow up: Response: No adverse reaction db Medication: 04:40 VIS not applicable for this client. tb4 Intake: 08:00 IV: 1000ml; Total: 1000ml. db 09:45 IV: 50ml; Total: 1050ml. db Outcome: 09:08 Discharge ordered by MD. valadez 09:55 Discharged to home via wheelchair, with family, db 09:55 Condition: stable 09:55 Discharge instructions given to patient, family, significant other, Instructed on discharge instructions, follow up and referral plans. Prescriptions given X 3, 10:12 Patient left the ED. db Signatures: Dispatcher [employer] EDNE Agustin Durham MD MD cha Benton, Danielle, RN RN db Peterson Kramer MD MD sp4 Mitchell, Ginger 2 Janay Ortega RN RN br2 Jagruti Pitt RN RN tb4 Corrections: (The following items were deleted from the chart) 04:37 04:30 BP 145 / 80; Pulse 112bpm; Resp 22bpm; Pulse Ox 96%; br2 br2
--- NOTE | 2025-02-06 09:09 | EDPHYS ---
Physician Documentation [facility] Name: Kwaku Knox Age: 79 yrs Sex: Male : 1945 Arrival Date: 02/06/2025 Time: 04:09 Bed 18 Private MD: ED Physician Agustin Durham HPI: 02/06 04:37 This 79 yrs old Male presents to ER via Wheelchair with complaints of sp4 Constipation, Urinary Problem. 07:04 79-year-old male presents with acute pelvic pain and feeling of urinary retention.. sp4 Historical: - Allergies: 04:34 No Known Allergies; br2 - PMHx: 04:34 Atrial fibrillation; Hypertension; br2 - PSHx: 04:34 knee replacement - left; br2 - Immunization history:: Adult Immunizations up to date. - Infectious Disease History:: Denies. - Social history:: Smoking status: . - Family history:: not pertinent. ROS: 07:05 Constitutional: Negative for fever, chills, and weight loss, positive for constipation sp4 positive for urinary retention positive for pelvic abdominal pain 07:05 All other systems are negative, Exam: 06:43 Constitutional: Frail elderly male, overweight, pale and diaphoretic. Head/Face: sp4 Normocephalic, atraumatic. Eyes: Pupils equal round and reactive to light, extra-ocular motions intact. Lids and lashes normal. Conjunctiva and sclera are not injected. Cornea within normal limits. Periorbital areas with no swelling, redness, or edema. ENT: Nares patent. No nasal discharge, no septal abnormalities noted. Tympanic membranes are normal and external auditory canals are clear. Oropharynx with no redness, swelling, or masses, exudates, or evidence of obstruction, uvula midline. Mucous membranes moist. Neck: Trachea midline, no thyromegaly or masses palpated, and no cervical lymphadenopathy. Supple, full range of motion without nuchal rigidity, or vertebral point tenderness. Chest/axilla: Normal chest wall appearance and motion. Nontender with no deformity. No lesions are appreciated. Cardiovascular: Regular rate and rhythm with a normal S1 and S2. No gallops, murmurs, or rubs. No pulse deficits. Respiratory: Lungs have equal breath sounds bilaterally, clear to auscultation and percussion. No rales, rhonchi or wheezes noted. No increased work of breathing, no retractions or nasal flaring. Abdomen/GI: Soft, with normal bowel sounds. No distension or tympany. No guarding or rebound. No evidence of tenderness throughout. Back: No spinal tenderness. No costovertebral tenderness. Male : Normal genitalia with no discharge or lesions. Skin: Warm, dry with normal turgor. Normal color with no rashes, no lesions, and no evidence of cellulitis. MS/ Extremity: Pulses equal, no cyanosis. Neurovascular intact. Full, normal range of motion. Neuro: Awake and alert, GCS 15, oriented to person, place, time, and situation. Cranial nerves II-XII grossly intact. Motor strength 5/5 in all extremities. Sensory grossly intact. Psych: Awake, alert, with orientation to person, place and time. Behavior, mood, and affect are within normal limits 06:43 ECG was reviewed by the Attending Physician. EKG at 0 423 atrial fibrillation rate 88 otherwise unremarkable. 07:22 Abdomen/GI: Rectal exam revealed moderate-sized fecal impaction. Patient was given sp4 enema, Vital Signs: 04:30 BP 145 / 80; Pulse 112; Resp 22; Pulse Ox 96% ; Weight 117.93 kg; Height 5 ft. 7 in. ; br2 Pain 10/10; 04:47 BP 145 / 80; Pulse 68; Resp 18; Temp 97.4(O); Pulse Ox 97% ; Weight 124.74 kg; Height 5 tb4 ft. 10 in. ; Pain 10/10; 05:18 BP 129 / 90; Pulse 86; Resp 18; Pulse Ox 97% on R/A; Pain 7/10; tb4 08:20 BP 136 / 68; Pulse 97; Resp 18; Pulse Ox 96% ; db 08:30 BP 125 / 95; Pulse 95; Resp 19; Pulse Ox 96% ; db 09:30 BP 124 / 58; Pulse 90; Resp 18; Pulse Ox 95% ; db 04:47 Body Mass Index 39.46 (124.74 kg, 177.8 cm) tb4 04:30 Pain Scale: Adult br2 04:47 Pain Scale: Adult tb4 05:18 Pain Scale: Adult tb4 Nilsa Coma Score: 06:43 Eye Response: spontaneous(4). Motor Response: obeys commands(6). Verbal Response: sp4 oriented(5). Total: 15. Procedures: 07:22 Fecal disimpaction: digital disimpaction was performed, with a moderate amount of stool sp4 expressed. The patient tolerated the intervention well, Partially evacuated fecal impaction.. MDM: 04:39 Medical Screening Exam initiated sp4 07:05 ED course: EXAMINATION: CTABDOMEN PELVIS WITHOUT IV CONTRAST INDICATION: 79 years old sp4 Male 1945 ABD PAIN COMPARISON(S): September 13, 2015 images only. TECHNIQUE: CT abdomen and pelvis. One or more of the following dose-optimizing techniques was utilized for this exam: automated exposure control, adjustment of the mA and/or kV according to patient size, and/or use of iterative reconstruction technique. Contrast: As stated in examination. FINDINGS: SUPPORT DEVICES: None. LOWER CHEST: Cardiomegaly. ABDOMEN/PELVIS: Liver: No acute finding. Gallbladder: Normal gallbladder. Biliary: No biliary ductal dilation. Pancreas: No pancreatitis. Spleen: Normal. Adrenal glands: No acute finding. Kidneys and ureters: No acute finding. Bladder: Decompressed with Wayne balloon catheter. Reproductive organs: Prostate seeds are noted. The prostate is markedly enlarged. Stomach/bowel: Large stool bolus is seen in the rectum compatible with impaction. Appendix: No appendicitis. Lymph nodes: No lymphadenopathy. Peritoneum: No intraperitoneal free air or significant fluid. Vessels: Calcific atherosclerotic disease aorta and iliofemoral systems. MUSCULOSKELETAL: Abdominal wall: No hernia or soft tissue mass. Bones: Degenerative disc disease and multilevel degenerative changes to the facet joints SI joints and hips. Small bone island left symphysis pubis. Multiple Schmorl's nodes noted. IMPRESSION: No acute findings. Multiple chronic age-related findings as described. Prostate seeds noted. Wayne balloon urinary catheter noted. Electronically signed by: Boni Serrato MD 02/06/2025 06:14 AM. 07:22 Differential diagnosis: diverticulitis, gastritis, gastroesophageal reflux disease, GI sp4 Bleed, Hepatitis. Data reviewed: vital signs, nurses notes, radiologic studies. Consideration of Admission/Observation Escalation of care including admission/observation considered. 07:23 Transition of care: After a detail discussion of the patient's case, care is sp4 transferred to Agustin Durham MD. 02/06 04:38 Order name: CBC with Diff; Complete Time: 06:42 sp4 02/06 04:38 Order name: CMP; Complete Time: 06:42 sp4 02/06 04:38 Order name: Lipase; Complete Time: 06:42 sp4 02/06 04:38 Order name: Troponin High Sensitivity; Complete Time: 06:42 sp4 02/06 04:38 Order name: BNP; Complete Time: 06:42 sp4 02/06 04:38 Order name: Ptt, Activated; Complete Time: 06:42 sp4 02/06 04:38 Order name: UA W/ Microscopic; Complete Time: 06:42 sp4 02/06 05:07 Order name: Manual Differential; Complete Time: 06:42 EDMS 02/06 04:38 Order name: CT Abd/Pelvis - Without Contrast; Complete Time: 09:07 sp4 02/06 07:40 Order name: US Extremity Venous W Compression Ken; Complete Time: 09:07 rory 02/06 04:38 Order name: EKG; Complete Time: 04:39 sp4 02/06 04:38 Order name: IV Saline Lock; Complete Time: 05:01 sp4 02/06 04:38 Order name: Labs collected and sent; Complete Time: 05:01 sp4 02/06 04:38 Order name: Wayne; Complete Time: 04:43 sp4 EC:23 Rate is 88 beats/min. Rhythm is irregularly irregular, A fib. QRS [place] is Normal. QRS sp4 interval is normal. QT interval is normal. No Q waves. T waves are Normal. No ST changes noted. Clinical impression: No evidence of ischemia. Interpreted by me. Reviewed by me. Administered Medications: 05:00 Drug: Famotidine IVP 20 mg IVP once; dilute with 10 mL 0.9% NaCl; give over 2 minutes tb4 Route: IVP; Site: right antecubital; 05:19 Follow up: Response: No adverse reaction tb4 05:01 Drug: Ondansetron IVP 8 mg IVP once; over 2 minutes Route: IVP; Site: right antecubital;tb4 05:19 Follow up: Response: No adverse reaction tb4 05:01 Drug: morphine IVP or IV 4 mg IVP once over 4 mins Route: IVP; Infused Over: 4 mins; tb4 Site: right antecubital; 05:19 Follow up: Response: No adverse reaction; Pain is decreased; RASS: Alert and Calm (0) tb4 05:01 Drug: NS 0.9% IV 1000 ml IV at 1 bolus Per protocol; to be given as a bolus over 60 tb4 minutes Route: IV; Rate: 1 bolus; Site: right antecubital; 08:00 Follow up: Response: No adverse reaction; IV Status: Completed infusion; IV Intake: db 1000ml 07:01 Drug: Fleet Enema HI 133 ml HI once Route: HI; tb4 10:11 Follow up: Response: No adverse reaction db 08:20 Drug: Rocephin IV 1 grams IV at per protocol once; Given slow IV push per pharmacy db instructions Route: IV; Rate: per protocol; Site: right antecubital; 09:45 Follow up: Response: No adverse reaction; IV Status: Completed infusion; IV Intake: 50mldb 08:20 Drug: morphine IVP or IV 2 mg IVP once over 4 mins Route: IVP; Infused Over: 4 mins; db Site: right antecubital; 10:11 Follow up: Response: No adverse reaction db 08:30 Drug: Dulcolax HI Suppository 10 mg HI once Route: HI; db 10:11 Follow up: Response: No adverse reaction db 08:30 Drug: Lactulose PO 60 grams 45 ml PO once Volume: 45 ml; Route: PO; db 10:12 Follow up: Response: No adverse reaction db 08:30 Drug: morphine IVP or IV 2 mg IVP once over 4 mins Route: IVP; Infused Over: 4 mins; db Site: right antecubital; 10:11 Follow up: Response: No adverse reaction db Disposition Summary: 02/06/25 09:08 Discharge Ordered Notes: Location: Home rory Problem: new rory Symptoms: have improved rory Condition: Stable rory Diagnosis - Constipation rory - Dysuria rory - Hematuria, unspecified rory - Bandemia rory Followup: rory - With: Private Physician - When: 2 - 3 days - Reason: Recheck today's complaints, Continuance of care, Re-evaluation by your physician Followup: rory - With: Clarissa Lynne MD - When: 2 - 3 days - Reason: Recheck today's complaints, Re-evaluation by your physician Discharge Instructions: - Discharge Summary Sheet rory - Abdominal Pain, Adult rory - Constipation, Adult rory - Dysuria rory Forms: - Medication Reconciliation Form rory - Antibiotic Education rory - Prescription Opioid Use rory - Patient Portal Instructions rory - Leadership Thank You Letter [facility] Prescriptions: - Dulcolax (bisacodyl) 10 mg Rectal suppository - insert 1 suppository RECTAL route every 12 hours as needed for constipation; 10 rory suppository; Refills: 0, Product Selection Permitted - cefdinir 300 mg Oral capsule - take 1 capsule ORAL route 2 times per day for 5 days; 10 capsule; Refills: 0, [facility] Product Selection Permitted - Lactulose 10 gram/15 mL Oral Solution - take 30 milliliters ORAL route once daily; 300 milliliter; Refills: 0, Product [facility] Selection Permitted Signatures: Dispatcher [employer] EDAgustin Belcher MD MD cha Benton, Danielle RN RN db Peterson Kramer MD MD sp4 Janay Ortega RN RN br2 Jagruti Pitt RN RN tb4
[2025-02-06 16:11] VITALS: TEMP 97.4
[2025-02-06 16:17] VITALS: BP 124/58; O2SAT 95
== END 2025-02-06 10:12 | disposition home or self-care (01) ==
LOC: ER 04:09
DX: K59.00 Constipation, unspecified (principal); R30.0 Dysuria; R31.9 Hematuria, unspecified; D72.825 Bandemia; I10 Essential (primary) hypertension; I48.91 Unspecified atrial fibrillation
CPT/HCPCS: 96365; 96361; 93005; 85025; 81001; 36415; 85730; 84484; 83690; 80053; 83880; 74176; 93970; 51702; 96375; 99285; J2405; J7030; J0696

== ENCOUNTER 2025-03-08 12:17 | Emergency (ER) | payer OTHER ==
[2025-03-08] MEDS ORDERED: FLEET ENEMA ADULT PR ONE (14:08)
[2025-03-08] MEDS ORDERED: ONDANSETRON 4 MG/2 ML VIAL ONE (14:13)
[2025-03-08] MEDS ORDERED: NA CHLORIDE 0.9% 1,000 ML ONE (14:14)
[2025-03-08 14:16] LABS: Absolute Lymphocytes (CBC) 0.8 K/uL (0.7-4.9); Hematocrit 41.6 % (39.6-49.0); Hemoglobin 14.4 g/dL (13.6-17.9); MCH 31.6 pg (27.0-35.0); MCHC 34.5 g/dL (32.0-36.0); MCV 91.7 fL (80-100); MPV 9.2 fL (7.6-11.3); Nucleated RBC Absolute Count 0.0 (0-0); Nucleated Red Blood Cells % 0.1 % (0-0); RBC Red Blood Cell Count 4.54 M/uL (4.33-5.43); White Blood Count 10.70 thou/uL (4.3-10.9)
[2025-03-08] MEDS ORDERED: POLYETHYL GLY 3350 17 GM/DOSE ONE (14:17)
[2025-03-08 14:34] LABS: ALT/SGPT 26.0 U/L (16-61); AST/SGOT 12.0 U/L (15-37); Albumin 3.2 g/dL (3.4-5.0); Albumin/Globulin Ratio 1.0 (1.1-1.8); Alkaline Phosphatase 84.0 U/L (45-117); Anion Gap 6.4 mEq/L (5.0-15.0); BUN Blood Urea Nitrogen 19.0 mg/dL (7-18); Globulin 3.2 g/dL (2.3-3.5); Glucose Level 86.0 mg/dL (74-106); Lipase 24.0 U/L (13-75); Potassium 4.4 mEq/L (3.5-5.1)
--- NOTE | 2025-03-08 15:11 | RAD REPORT ---
EXAMINATION: Abdomen Pelvis W Contrast CLINICAL INDICATION: Male, 79 years old.CONSTIPATION TECHNIQUE: CT abdomen and pelvis was performed, after the administration of IV contrast, as per [facility] protocol. Axial, sagittal and coronal reconstructions were obtained. One or more of the following dose reduction techniques were used: Automated exposure control, adjustment of the mA and/o r kV according to patient size, and/or iterative reconstruction. Unless otherwise specified, incidental findings do not require dedicated imaging follow-up. [id number]. COMPARISON: 02/06/2025 FINDINGS: LOWER CHEST: Punctate right middle lobe pulmonary nodules of doubtful significance.Mild cardiomegaly. Moderate coronary artery calcifications. UPPER GI: No significant abnormality. LIVER: Hepatic steatosis. Benign appearing and/or stable lesions are identified. No suspicious mass. GALLBLADDER/BILE DUCTS: Cholelithiasis without CT evidence of acute cholecystitis.? PANCREAS: Atrophy but no acute findings. SPLEEN: Unremarkable. ADRENALS: No adrenal masses. KIDNEYS AND URETERS: No hydronephrosis.Low density and/or too small to characterize renal lesions whi ch are statistically benign.No renal calculi.No ureteral calculi. ABDOMINAL AORTA AND OTHER VESSELS: Mild atherosclerotic changes. PERITONEUM: No abnormal free fluid. No free air. LYMPH NODES: No pathologic lymphadenopathy. ABDOMINAL WALL: Unremarkable SMALL BOWEL/COLON: Small bowel has normal course and caliber. No colonic wall thickening or pericolon ic inflammatory changes. Moderate diverticulosis without diverticulitis. URINARY BLADDER: Underdistended but grossly unremarkable. REPRODUCTIVE ORGANS: Postprocedural changes at the prostate. MUSCULOSKELETAL: Remote right-sided rib fractures. Multiple Schmorl's nodes. Severe right hip degener ative changes. ADDITIONAL FINDINGS: None. IMPRESSION: No acute findings within the abdomen or pelvis. Incidental findings as noted above.
--- NOTE | 2025-03-08 16:04 | ER ---
Nurse's Notes [facility] Name: Kwaku Knox Age: 79 yrs Sex: Male : 1945 Arrival Date: 03/08/2025 Time: 12:17 Bed 15 Private MD: Diagnosis: Constipation Presentation: 03/08 12:45 Chief complaint: Patient states: HE HAS NOT HAD A BOWEL MOVEMENT SINCE 03/02/2025, dd2 REPORTS GAS. PT STATES HE HAS TAKEN MULTIPLE OTC LAXATIVES. Coronavirus screen: At this time, the client does not indicate any symptoms associated with coronavirus-19. Ebola Screen: No symptoms or risks identified at this time. Initial Sepsis Screen: Does the patient meet any 2 criteria? No. Patient's initial sepsis screen is negative. Does the patient have a suspected source of infection? No. Patient's initial sepsis screen is negative. Risk Assessment: Do you want to hurt yourself or someone else? Patient reports no desire to harm self or others. Onset of symptoms was March 03, 2025. 12:45 Method Of Arrival: Wheelchair dd2 12:45 Acuity: ROMI 3 dd2 Triage Assessment: 12:49 General: Appears in no apparent distress. uncomfortable, Behavior is calm, cooperative, dd2 appropriate for age. Pain: Complains of pain in anterior aspect of left shoulder. GI: Reports constipation, Patient currently denies abdominal pain. Historical: - Allergies: 12:49 No Known Allergies; dd2 - PMHx: 12:49 Atrial fibrillation; Hypertension; dd2 - PSHx: 12:49 knee replacement - left; dd2 - Immunization history:: Adult Immunizations up to date. - Infectious Disease History:: Denies. - Social history:: Smoking status: Patient denies any tobacco usage or history of. Screenin:10 [facility] ED Fall Risk Assessment (Adult) History of falling in the last 3 months, jp5 including since admission No falls in past 3 months (0 pts) Confusion or Disorientation No (0 pts) Intoxicated or Sedated No (0 pts) Impaired Gait No (0 pts) Mobility Assist Device Used Yes (1 pt) Altered Elimination Yes (1 pt) Score/Fall Risk Level 0 - 2 = Low Risk Oriented to surroundings, Maintained a safe environment, Educated pt \T\ family on fall prevention, incl call for assistance when getting out of bed, Assessed \T\ reinforced patient's understanding of fall precautions, Provided non-skid footwear, Hourly rounding (assess needs \T\ fall precautionary measures) done, Used ambulatory aids as needed (educated on \T\ assisted with). Abuse screen: Denies threats or abuse. Denies injuries from another. Nutritional screening: No deficits noted. Tuberculosis screening: No symptoms or risk factors identified. Assessment: 13:25 Reassessment: Patient and/or family updated on plan of care and expected duration. Pain ll1 level reassessed. 14:10 General: Appears in no apparent distress. Behavior is calm, cooperative, appropriate jp5 for age. GI: Bowel sounds present X 4 quads. Abd is soft and non tender Reports constipation. Vital Signs: 12:45 BP 139 / 67; Pulse 87; Resp 16; Temp 97.5; Pulse Ox 98% on R/A; Weight 122.47 kg; Pain dd2 6/10; 14:30 BP 178 / 107; Pulse 79; Resp 16; Pulse Ox 100% on R/A; jp5 12:45 Pain Scale: Adult dd2 ED Course: 12:18 Patient arrived in ED. im 12:31 Aníbal Boyd FNP-C is PHCP. dr5 12:31 Edilberto Jones DO is Attending Physician. dr5 12:49 Triage completed. dd2 12:49 Arm band placed on right wrist. dd2 13:25 Patient placed in an exam room, on a stretcher. ll1 13:28 Tita Ibrahim, RN is Primary Nurse. jp5 14:06 CBC with Diff Sent. jp5 14:06 CMP Sent. jp5 14:06 Lipase Sent. jp5 14:09 Initial lab(s) drawn, by laborer plumbing, sent to lab. Inserted saline lock: 20 gauge in left ts3 antecubital area, using aseptic technique. Blood collected. Flushed with 10 mL NS. 14:10 Patient has correct armband on for positive identification. Bed in low position. Call jp5 light in reach. Side rails up X 1. Provided Education on: call light use. 14:10 No provider procedures requiring assistance completed. jp5 14:30 Assisted to bedside commode. ENEMA DONE. jp5 15:00 CT Abd/Pelvis - IV Contrast Only In Process Unspecified. EDMS 16:02 Paul Miguel MD is Referral Physician. dr5 16:22 IV discontinued, intact, bleeding controlled, No redness/swelling at site. Pressure jp5 dressing applied. Administered Medications: 14:25 Drug: Ondansetron IVP 4 mg IVP once; over 2 minutes Route: IVP; Site: left antecubital; jp5 14:25 Drug: Fleet Enema IN 133 ml IN once; may repeat once Route: IN; jp5 14:25 Drug: Miralax PO 17 grams PO once; mix into 4-8 oz. of any hot/cold/room temp. beverage jp5 and drink immediately Route: PO; 14:30 Drug: NS 0.9% IV 1000 ml IV at 1 bolus Per protocol; to be given as a bolus over 60 jp5 minutes Route: IV; Rate: 1 bolus; Site: left antecubital; Medication: 14:10 VIS not applicable for this client. jp5 Outcome: 16:03 Discharge ordered by MD. dr5 16:22 Discharged to home via wheelchair, jp5 16:22 Condition: stable 16:22 Discharge instructions given to patient, significant other, Instructed on discharge instructions, follow up and referral plans. medication usage, Demonstrated understanding of instructions, follow-up care, medications, Prescriptions given X 1, 16:23 Patient left the ED. jp5 Signatures: Dispatcher [employer] EDVT Noe Tucker RN RN ll1 Dinah Browning Jailene, RN RN jp5 DARION WETZEL RN RN dd2 Aníbal Boyd, MAGNETOMETER OPERATOR-C MAGNETOMETER OPERATOR-[facility]5 Ivone Macias ts3 Corrections: (The following items were deleted from the chart) 14:39 14:30 Assisted to bedside commode. jp5 jp5
--- NOTE | 2025-03-08 16:04 | EDPHYS ---
Physician Documentation [facility] Name: Kwaku Knox Age: 79 yrs Sex: Male : 1945 Arrival Date: 03/08/2025 Time: 12:17 Bed 15 Private MD: ED Physician Edilberto Jones HPI: 03/08 18:55 This 79 yrs old Male presents to ER via Wheelchair with complaints of dr5 Constipation. 18:55 Onset: The symptoms/episode began/occurred 6 day(s) ago. 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 Patient reports he is passing gas without issues and denies any abdominal pain. Patient reports been taking [id number] medications at home with no relief. Patient denies the need to have a bowel movement. Patient reports he has been on Wegovy as well as pain medications which she thinks contributes to the constipation.. Historical: - Allergies: 12:49 No Known Allergies; dd2 - PMHx: 12:49 Atrial fibrillation; Hypertension; dd2 - PSHx: 12:49 knee replacement - left; dd2 - Immunization history:: Adult Immunizations up to date. - Infectious Disease History:: Denies. - Social history:: Smoking status: Patient denies any tobacco usage or history of. ROS: 18:55 Constitutional: as per hpi dr5 Exam: 18:55 Constitutional: This is a well developed, well nourished patient who is awake, alert, dr5 and in no acute distress. Head/Face: Normocephalic, atraumatic. Eyes: Pupils equal round and reactive to light, extra-ocular motions intact. Lids and lashes normal. Conjunctiva and sclera are non-icteric and not injected. Cornea within normal limits. Periorbital areas with no swelling, redness, or edema. ENT: Nares patent. No nasal discharge, no septal abnormalities noted. Tympanic membranes are normal and external auditory canals are clear. Oropharynx with no redness, swelling, or masses, exudates, or evidence of obstruction, uvula midline. Mucous membranes moist. Chest/axilla: Normal chest wall appearance and motion. Nontender with no deformity. No lesions are appreciated. Cardiovascular: Regular rate and rhythm with a normal S1 and S2. Normal PMI, no JVD. No pulse deficits. Respiratory: Lungs have equal breath sounds bilaterally, clear to auscultation. No rales, rhonchi or wheezes noted. No increased work of breathing, no retractions or nasal flaring. Abdomen/GI: Soft, non-tender, non-distended. Patient's obese. Back: No spinal tenderness. No costovertebral tenderness. Full range of motion. Skin: Warm, dry with normal turgor. Normal color with no rashes, no lesions, and no evidence of cellulitis. MS/ Extremity: Pulses equal, no cyanosis. Neurovascular intact. Full, normal range of motion. Neuro: Awake and alert, GCS 15, oriented to person, place, time, and situation. Cranial nerves II-XII grossly intact. Motor strength 5/5 in all extremities. Sensory grossly intact. Cerebellar exam normal. Normal gait. Vital Signs: 12:45 BP 139 / 67; Pulse 87; Resp 16; Temp 97.5; Pulse Ox 98% on R/A; Weight 122.47 kg; Pain dd2 6/10; 14:30 BP 178 / 107; Pulse 79; Resp 16; Pulse Ox 100% on R/A; jp5 12:45 Pain Scale: Adult dd2 MDM: 12:31 Medical Screening Exam initiated dr5 18:55 Differential diagnosis: viral Infection, bacterial infection, Constipation, bowel dr5 obstruction, diverticulitis, diverticulosis. Data reviewed: vital signs, nurses notes, lab test result(s), amylase and lipase, CBC, white blood cell count, hemoglobin, hematocrit, platelets, electrolytes, sodium, potassium, chloride, serum bicarbonate, BUN, creatinine, serum glucose, radiologic studies, CT scan. Consideration of Admission/Observation Escalation of care including admission/observation considered. Escalation considered patient found to have bowel obstruction. I considered the following discharge prescriptions or medication management in the emergency department I discussed and recommended Over The Counter medications, Medications were administered in the Emergency Department. See MAR. Historians other than the Patient: Spouse/Significant Other: at bedside. Care significantly affected by the following chronic conditions: Hypertension, A-fib. Care significantly affected by the following Social Determinants of Health: Poor access to healthcare and/or lack of insurance, Poor access to transportation, Problems related to employment. Counseling: I had a detailed discussion with the patient and/or guardian regarding the historical points, exam findings, and any diagnostic results supporting the discharge/admit diagnosis, the presence of at least one elevated blood pressure reading (>120/80) during this emergency department visit, lab results, radiology results, the need for outpatient follow up, for definitive care, a sas etl developer, to return to the emergency department if symptoms worsen or persist or if there are any questions or concerns that arise at home. Medication response: MiraLAX, Fleet enema, normal saline. Response to treatment: the patient is now symptom free. Special discussion: Based on the patient's Hx, exam, and Dx evaluation, there is no indication for emergent surgery or inpatient Tx. It is understood by the patient/guardian that if the Sx's persist or worsen they need to return immediately for re-evaluation. I discussed with the patient/guardian in detail that at this point there is no indication for admission to the hospital. It is understood, however, that if the symptoms persist or worsen the patient needs to return immediately for re-evaluation. Based on the history and exam findings, there is no indication for further emergent testing or inpatient evaluation. I discussed with the patient/guardian the need to see the sas etl developer for further evaluation of the symptoms. I discussed with the patient/guardian the need to see the primary care provider for further evaluation of the symptoms. ED course: Recommended patient have [id number] constipation medications. Discussed with patient all labs and CT results. Patient does not have bowel obstruction or constipation. Recommend patient not try to have bowel movement if his body is not telling him to needs to have one. All questions answered. Recommended follow-up with primary care doctor and GI doctor as needed. I printed labs and CT scan results with patient taking with him. All questions were answered. Strict ER precautions given. 03/08 13:34 Order name: CBC with Diff; Complete Time: 14:21 dr5 03/08 13:34 Order name: CMP; Complete Time: 14:46 dr5 03/08 13:34 Order name: Lipase; Complete Time: 14:46 dr5 03/08 13:34 Order name: CT Abd/Pelvis - IV Contrast Only; Complete Time: 15:24 dr5 03/08 13:34 Order name: IV Saline Lock; Complete Time: 14:06 dr5 03/08 13:34 Order name: Labs collected and sent; Complete Time: 14:06 dr5 Administered Medications: 14:25 Drug: Ondansetron IVP 4 mg IVP once; over 2 minutes Route: IVP; Site: left antecubital; jp5 14:25 Drug: Fleet Enema ME 133 ml ME once; may repeat once Route: ME; jp5 14:25 Drug: Miralax PO 17 grams PO once; mix into 4-8 oz. of any hot/cold/room temp. beverage jp5 and drink immediately Route: PO; 14:30 Drug: NS 0.9% IV 1000 ml IV at 1 bolus Per protocol; to be given as a bolus over 60 jp5 minutes Route: IV; Rate: 1 bolus; Site: left antecubital; Disposition Summary: 03/08/25 16:03 Discharge Ordered Notes: Location: Home dr5 Condition: Stable dr5 Diagnosis - Constipation dr5 Followup: dr5 - With: Emergency Department - When: As needed - Reason: Worsening of condition Followup: dr5 - With: Private Physician - When: 1 - 2 days - Reason: Recheck today's complaints, Continuance of care, Re-evaluation by your physician Followup: dr5 - With: Paul Miguel MD - When: 1 - 2 days - Reason: Recheck today's complaints, Continuance of care, Re-evaluation by your physician Discharge Instructions: - Discharge Summary Sheet dr5 - Constipation, Adult dr5 Forms: - Medication Reconciliation Form dr5 - Patient Portal Instructions dr5 - Leadership Thank You Letter dr5 Prescriptions: - Colace 100 mg Oral Tablet - take 1 tablet ORAL route every 12 hours; 14 tablet; Refills: 0, Product dr5 Selection Permitted Signatures: Dispatcher [employer] iTta Gomez RN RN jp5 DARION WETZEL RN RN dd2 Aníbal Boyd, MOLD CONSTRUCTION SUPERVISOR-C MOLD CONSTRUCTION SUPERVISOR-Cdr5
[2025-03-08 16:30] VITALS: TEMP 97.5
[2025-03-08 16:32] VITALS: BP 178/107; O2SAT 100
== END 2025-03-08 16:23 | disposition home or self-care (01) ==
LOC: ER 12:17
DX: K59.00 Constipation, unspecified (principal)
CPT/HCPCS: 85025; 36415; 83690; 80053; 74177; 96374; 99284; Q9967; J2405; J7030